=== PATIENT | female | born 1960 | race Caucasian/White ===

== ENCOUNTER 2017-02-27 23:10 | Emergency (ER) | payer BC, MEDICARE ==
[2017-02-27] MEDS ORDERED: PREDNISONE 20 MG TAB PO ONE (23:54)
--- NOTE | 2017-02-27 23:57 | Emergency Department Record ---
History of Present Illness - General Chief complaint: ENT Stated complaint: THROAT GLANDS SWELLING Time Seen by Provider: 02/27/17 23:54 Source: Patient Mode of Arrival: Ambulatory Limitations: No limitations - History of Present Illness Initial comments: 56 yo female presents to ED with a CC of soft-tissue swelling to the left side of the face that has slightly worsened tonight following dental manipulation earlier today for dental abscess. Patient reports that she was also switched from Zithromax to Clindamycin for her dental infection. Patient denies any tongue swelling or elevation, denies difficulty swallowing or breathing. MD complaint: Tooth pain, Other Onset/Timin -: Hour(s) Location: Other (submandibular region) Severity scale (1-10): 3 Quality: Aching Consistency: Constant Improves with: None Context- Dental: History of dental caries - Related Data Home Medications Medication Instructions Recorded Confirmed Last Taken Atenolol [Tenormin] 75 mg PO DAILY 04/20/14 08/19/16 08/18/14 Baclofen [Baclofen] 20 mg PO TID 04/20/14 08/19/16 08/17/14 Diazepam [Valium] 2.5 mg PO QHS 04/20/14 08/19/16 08/17/14 Levothyroxine Sodium [Levoxyl] 137 mcg PO DAILY 04/20/14 08/19/16 08/18/14 Losartan Potassium [Cozaar] 100 mg PO QHS 04/20/14 08/19/16 08/17/14 Valacyclovir HCl [Valtrex] 1,000 mg PO QHS 04/20/14 08/19/16 08/17/14 B Complex with Vitamin C [Super B 1 each PO DAILY 08/18/14 08/19/16 08/18/14 Complex with C] Calcium Citrate 500 mg PO QHS 08/18/14 08/19/16 08/17/14 Diazepam [Valium] 5 mg PO BID PRN 08/18/14 08/19/16 08/18/14 Folic Acid 1 mg PO DAILY 08/18/14 08/19/16 08/18/14 [place]-3 Fatty Acids/Fish Oil [Fish 1 each PO DAILY 08/18/14 08/19/16 08/18/14 Oil 1,000 mg Softgel] Albuterol Sulfate [Ventolin Hfa] 1 - 2 puff IH .EVERY 4-6 HOURS PRN 12/25/1512/25/15 Beclomethasone Dipropionate [Qvar] 2 puff IH DAILY 12/25/15 08/19/16 12/25/15 Duloxetine HCl [Cymbalta] 60 mg PO QHS 12/25/15 08/19/16 Unknown Estradiol [Estrace] 0.5 gm TOP WEEKLY 12/25/15 08/19/16 Unknown Gabapentin [Neurontin] 300 mg PO TID 12/25/15 08/19/16 Unknown Melatonin 5 mg PO QHS 12/25/15 08/19/16 Unknown Previous Rx's Medication Instructions Recorded Prednisone [Prednisone 20Mg] 20 mg PO BID #8 tab 02/27/17 Allergies Allergy/AdvReac Type Severity Reaction Status Date / Time pregabalin [From Lyrica] Allergy Severe ANAPHYLAXIS Verified 02/27/17 23:39 sulfamethoxazole Allergy Severe SWELLING Verified 02/27/17 23:39 [From Bactrim] OF THE FACE trimethoprim [From Bactrim] Allergy Severe SWELLING Verified 02/27/17 23:39 OF THE FACE adhesive Allergy Mild RASH Verified 02/27/17 23:39 nitrofurantoin AdvReac Intermediate VOMITING Verified 02/27/17 23:39 [From Macrobid] nitrofurantoin AdvReac Intermediate VOMITING Verified 02/27/17 23:39 macrocrystalline [From Macrobid] iv contrast dye Allergy Severe ANAPHYLAXIS Uncoded 10/31/16 14:49 Travel Screening - Travel/Exposure Within Last 30 Days Have you traveled within the last 30 days?: No - Travel Symptoms Symptom Screening: None Review of Systems Constitutional: Denies: Chills, Fever, Malaise, Night sweats Eyes: Denies: Eye discharge, Eye pain ENT: Reports: Dental pain. Denies: Congestion, Ear pain Respiratory: Denies: Cough, Dyspnea Cardiovascular: Denies: Chest pain, Dyspnea on exertion Endocrine: Denies: Fatigue, Heat or cold intolerance Gastrointestinal: Denies: Abdominal pain, Nausea, Vomiting Genitourinary: Denies: Dysuria, Frequency Musculoskeletal: Denies: Arthralgia, Back pain, Gout, Joint swelling Skin: Reports: Other (facial swelling). Denies: Bruising, Change in color, Change in hair/nails Neurological: Denies: Abnormal gait, Confusion, Headache, Seizure Psychiatric: Denies: Anxiety Hematological/Lymphatic: Denies: Anemia, Blood Clots Past Medical History - SOCIAL HISTORY Smoking Status: Light tobacco smoker (<10/day) - RESPIRATORY Hx Respiratory Disorders: Yes Hx Asthma: Yes Hx Pneumonia: Yes - CARDIOVASCULAR Hx Cardio Disorders: Yes Hx Hypertension: Yes - NEURO Hx Neuro Disorders: Yes Hx Neuropathy: Yes (all over) Hx Seizures: Yes (1999) - GI Hx GI Disorders: No Comment:: gluten intollerant - Hx Genitourinary Disorders: Yes Hx Renal Disease: Yes Hx UTI: Yes - ENDOCRINE Hx Endocrine Disorders: Yes Hx Thyroid Disease: Yes (low) Comment:: Adrenal tumor-pheochromocytoma - MUSCULOSKELETAL Hx Musculoskeletal Disorders: Yes Hx Arthritis: Yes (right knee pain) Comment:: congenital myopathy - PSYCH Hx Psych Problems: No - HEMATOLOGY/ONCOLOGY Hx Hematology/Oncology Disorders: Yes Hx Cancer: Yes (Leukemia) 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 negative: Conjunctival injection, Periorbital swelling, Periorbital tenderness, Scleral icterus - ENT ENT exam: Mucous membranes moist, Normal orophraynx Ear exam: negative: Auricular hematoma, Auricular trauma Nasal Exam: negative: Active bleeding, Discharge, Dried blood, Foreign body Mouth exam: Tongue normal, Other (On examination, there is no evidence for ludwigs angina, tongue elevation, or submandibular abscess/lesion present. Patient has very mild edema extending from the left lower mandible into the submandibular region on examination.). negative: Drooling, Laceration, Muffled voice, Tongue elevation Teeth exam: Dental caries Throat exam: negative: Tonsillar erythema, Tonsillomegaly, Tonsillar exudate, R peritonsillar mass, L peritonsillar mass - Neck Neck exam: Full ROM. negative: Lymphadenopathy, Meningismus, Tenderness - Respiratory Respiratory exam: Normal lung sounds bilaterally. negative: Rales, Respiratory distress, Rhonchi, Stridor - Cardiovascular Cardiovascular Exam: Regular rate, Normal rhythm, Normal heart sounds - GI/Abdominal GI/Abdominal exam: Soft. negative: Rebound, Rigid, Tenderness - Rectal Rectal exam: Deferred - exam: Deferred - Extremities Extremities exam: Normal inspection. negative: Calf tenderness, Pedal edema, Tenderness - Back Back exam: Denies: CVA tenderness (R), CVA tenderness (L) - Neurological Neurological exam: Alert, Normal gait, Oriented X3 - Psychiatric Psychiatric exam: Normal affect, Normal mood - Skin Skin exam: Normal color. negative: Abrasion Type of lesion: negative: abrasion Course Vital Signs 02/27/17 23:36 Temperature 98.1 F Pulse Rate [ 75 Pulse Ox Probe] Respiratory 18 Rate Blood Pressure 137/72 [Right Arm] - Reevaluation(s) Reevaluation #1: 02/28/17 00:02 Patient is well appearing on examination without evidence for jono's angina present. There is no tongue elevation on examination, no evidence for submandibular abscess on examination. Patient was just switched to Clindamycin today as well. Will treat with Prednisone 20 mg BID for her facial swelling/ inflammation, patient was instructed to return to ED for any worsening of her symptoms, any tongue elevation, difficultly swallowing, or "hardness" to the submandibula region. Patient appears stable for discharge at this time. Disposition Disposition: Discharge Clinical Impression: Dental abscess Disposition: Home, Self-Care Condition: (2) Stable Instructions: Dental Abscess (ED) Additional Instructions: Return to ED if your facial swelling worsens or if you have any concerns. Prednisone 20 mg twice daily as directed. Follow-up with your dentist Thursday for further evaluation. Prescriptions: Prednisone [Prednisone 20Mg] 20 mg PO BID #8 tab Forms: Patient Portal Access Time of Disposition: 23:57
== END 2017-02-28 00:13 | disposition home or self-care (01) ==
LOC: ER 23:10
DX: K04.7 Periapical abscess without sinus (principal)
CPT/HCPCS: 99282; J7512

== ENCOUNTER 2017-03-01 17:44 | Emergency (ER) | payer BC, MEDICARE ==
[2017-03-01] MEDS ORDERED: 0.9 % SODIUM CHLORIDE 1000ML 1,000 ML IV SCH (18:15)
--- NOTE | 2017-03-01 18:18 | Emergency Department Record ---
History of Present Illness - General Chief complaint: Dental Stated complaint: DENTAL PROBLEM Time Seen by Provider: 03/01/17 18:11 Source: Patient Mode of Arrival: Ambulatory Limitations: No limitations - History of Present Illness Initial comments: 56 yo female presents to ED with a CC of increased submandibular swelling resulting from a dental infection. Patient reports that she is being treated by Dr. Carrera (sp?) last week x 4 draining an infected tooth to the left lower mandible. Patient was switched to Clindamycin Thursday by her dentist, seen Thursday night and started on prednisone for her swelling symptoms. Patient reports that her symptoms improved Thursday, but are worsening today. Patient denies any tongue swelling/elevation, throat swelling, or difficulty in breathing symptoms. Patient fevers, chills, or pain with extraocular movement. MD complaint: Tooth pain Onset/Timin -: Week(s) Location: Tooth # 1 - dental abscess per patient Severity: Moderate Consistency: Constant Improves with: None Worsens with: None Context- Dental: History of dental caries - Related Data Home Medications Medication Instructions Recorded Confirmed Last Taken Atenolol [Tenormin] 75 mg PO DAILY 04/20/14 03/01/17 03/01/17 Baclofen [Baclofen] 20 mg PO TID 04/20/14 03/01/17 03/01/17 Diazepam [Valium] 2.5 mg PO QHS 04/20/14 03/01/17 02/28/17 Levothyroxine Sodium [Levoxyl] 137 mcg PO DAILY 04/20/14 03/01/17 03/01/17 Losartan Potassium [Cozaar] 100 mg PO QHS 04/20/14 03/01/17 02/28/17 Valacyclovir HCl [Valtrex] 1,000 mg PO QHS 04/20/14 03/01/17 02/28/17 B Complex with Vitamin C [Super B 1 each PO DAILY 08/18/14 03/01/17 03/01/17 Complex with C] Calcium Citrate 500 mg PO QHS 08/18/14 03/01/17 02/28/17 Diazepam [Valium] 5 mg PO BID PRN 08/18/14 03/01/17 03/01/17 Folic Acid 1 mg PO DAILY 08/18/14 03/01/17 03/01/17 [place]-3 Fatty Acids/Fish Oil [Fish 1 each PO DAILY 08/18/14 03/01/17 03/01/17 Oil 1,000 mg Softgel] Albuterol Sulfate [Ventolin Hfa] 1 - 2 puff IH .EVERY 4-6 HOURS PRN 12/25/1508/0903/01/17 Beclomethasone Dipropionate [Qvar] 2 puff IH DAILY 12/25/15 03/01/17 03/01/17 Duloxetine HCl [Cymbalta] 60 mg PO QHS 12/25/15 03/01/17 02/28/17 Estradiol [Estrace] 0.5 gm TOP WEEKLY 12/25/15 03/01/17 03/01/17 Gabapentin [Neurontin] 300 mg PO TID 12/25/15 03/01/17 03/01/17 Melatonin 5 mg PO QHS 12/25/15 03/01/17 02/28/17 Ciprofloxacin HCl [Cipro] 500 mg PO Q12HR 02/28/17 03/01/17 03/01/17 Clindamycin HCl [Cleocin HCl] 300 mg PO BID 02/28/17 03/01/17 03/01/17 Hydrocodone/Acetaminophen [Vicodin 1 tab PO Q8H PRN 02/28/17 03/01/17 03/01/17 5mg/300mg] Previous Rx's Medication Instructions Recorded Prednisone [Prednisone 20Mg] 20 mg PO BID #8 tab 02/27/17 Allergies Allergy/AdvReac Type Severity Reaction Status Date / Time pregabalin [From Lyrica] Allergy Severe ANAPHYLAXIS Verified 02/27/17 23:39 sulfamethoxazole Allergy Severe SWELLING Verified 02/27/17 23:39 [From Bactrim] OF THE FACE trimethoprim [From Bactrim] Allergy Severe SWELLING Verified 02/27/17 23:39 OF THE FACE adhesive Allergy Mild RASH Verified 02/27/17 23:39 nitrofurantoin AdvReac Intermediate VOMITING Verified 02/27/17 23:39 [From Macrobid] nitrofurantoin AdvReac Intermediate VOMITING Verified 02/27/17 23:39 macrocrystalline [From Macrobid] iv contrast dye Allergy Severe ANAPHYLAXIS Uncoded 10/31/16 14:49 Travel Screening - Travel/Exposure Within Last 30 Days Have you traveled within the last 30 days?: No - Travel/Exposure Within Last Year Have you traveled outside the [place] in the last year?: No - Additonal Travel Details Have you been exposed to anyone with a communicable illness?: No - Travel Symptoms Symptom Screening: None Review of Systems Constitutional: Denies: Chills, Fever, Malaise, Night sweats Eyes: Denies: Eye discharge, Eye pain ENT: Reports: Dental pain, Other (left sided facial swelling). Denies: Congestion, Ear pain Respiratory: Denies: Cough, Dyspnea Cardiovascular: Denies: Chest pain, Dyspnea on exertion Endocrine: Denies: Fatigue, Heat or cold intolerance Gastrointestinal: Denies: Abdominal pain, Nausea, Vomiting Genitourinary: Denies: Incontinence, Retention Musculoskeletal: Denies: Arthralgia, Back pain, Gout, Joint swelling Skin: Denies: Bruising, Change in color Neurological: Denies: Abnormal gait, Confusion, Headache, Seizure Psychiatric: Denies: Anxiety Hematological/Lymphatic: Denies: Anemia, Blood Clots Past Medical History - SOCIAL HISTORY Smoking Status: Light tobacco smoker (<10/day) Alcohol Use: None Drug Use: None - RESPIRATORY Hx Respiratory Disorders: Yes Hx Asthma: Yes Hx Pneumonia: Yes - CARDIOVASCULAR Hx Cardio Disorders: Yes Hx Hypertension: Yes - NEURO Hx Neuro Disorders: Yes Hx Neuropathy: Yes (all over) Hx Seizures: Yes (1999) - GI Hx GI Disorders: No Comment:: gluten intollerant - Hx Genitourinary Disorders: Yes Hx Renal Disease: Yes Hx UTI: Yes - ENDOCRINE Hx Endocrine Disorders: Yes Hx Thyroid Disease: Yes (low) Comment:: Adrenal tumor-pheochromocytoma - MUSCULOSKELETAL Hx Musculoskeletal Disorders: Yes Hx Arthritis: Yes (right knee pain) Comment:: congenital myopathy - PSYCH Hx Psych Problems: No - HEMATOLOGY/ONCOLOGY Hx Hematology/Oncology Disorders: Yes Hx Cancer: Yes (Leukemia) 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 Overall very little chagne from 48 hours prior.). negative: Abrasion, Contusion, Paige's sign, General tenderness, Hematoma, Laceration - Eye Eye exam: Periorbital swelling. negative: Conjunctival injection, Periorbital tenderness, Scleral icterus - ENT Ear exam: negative: Auricular hematoma, Auricular trauma Nasal Exam: negative: Active bleeding, Discharge, Dried blood, Foreign body, Sinus tenderness Mouth exam: negative: Drooling, Laceration, Tongue elevation Teeth exam: Dental caries Throat exam: negative: Tonsillar erythema, Tonsillomegaly, Tonsillar exudate, R peritonsillar mass, L peritonsillar mass - Neck Neck exam: Normal inspection. negative: Meningismus, Tenderness - Respiratory Respiratory exam: Normal lung sounds bilaterally. negative: Respiratory distress, Rhonchi, Stridor, Wheezes - Cardiovascular Cardiovascular Exam: Regular rate, Normal rhythm, Normal heart sounds - GI/Abdominal GI/Abdominal exam: Soft. negative: Pulsatile mass, Rebound, Rigid, Tenderness - Rectal Rectal exam: Deferred - exam: Deferred - Extremities Extremities exam: Normal inspection. negative: Calf tenderness, Pedal edema, Tenderness - Back Back exam: Denies: CVA tenderness (R), CVA tenderness (L) - Neurological Neurological exam: Alert, Normal gait, Oriented X3 - Psychiatric Psychiatric exam: Normal affect, Normal mood - Skin Skin exam: Normal color. negative: Abrasion Type of lesion: negative: abrasion Course Vital Signs 03/01/17 18:03 Temperature 97.3 F L Pulse Rate 89 Respiratory 14 Rate Blood Pressure 167/94 Pulse Ox 97 - Reevaluation(s) Reevaluation #1: 03/01/17 18:19 Overall very little change from 48 hours prior. Will image the area to exclude submandibular process and reassess. Patient reports that she will be able to follow-up with her dentist tomorrow as well if her imaging does not demonstrate an acute submandibular process. Reevaluation #2: 03/01/17 19:35 Soft tissue neck w/o contrast: No abscess or sub-mandibular process identified, ? small lucency at dental root left lower mandible relating to possible apical abscess, nothing else acute. Reevaluation #3: 03/01/17 19:50 Labs reviewed, WBC 15.3 (on prednisone), Hgb 11.1, glucose 184. Labs are otherwise grossly unremarkable for an acute process. Patient updated on all results, and appears stable for discharge at this time with instructions to follow-up with her dentist tomorrow for further evaluation. Medical Decision Making - Lab Data Result diagrams: 03/01/17 19:25 03/01/17 19:25 Disposition Disposition: Discharge Clinical Impression: Dental abscess Disposition: Home, Self-Care Condition: (2) Stable Instructions: Dental Abscess (ED) Additional Instructions: Return to ED if your symptoms worsen or if you have any concerns. Continue Clindamycin as directed. Call your dentist for follow-up tomorrow morning. Forms: Patient Portal Access Time of Disposition: 19:52
[2017-03-01 19:29] LABS: HEMATOCRIT 33.4 % (35.0-47.0); HEMOGLOBIN 11.1 gm/dl (11.6-16.0); MEAN CORPUSCULAR HEMOGLOBIN 34.9 pg (27-33); MEAN CORPUSCULAR HGB CONC 33.2 g/dl (32-36); MEAN PLATELET VOLUME 8.7 fl (7.4-10.4); PLATELET COUNT 397 K/uL (130-400); RED BLOOD COUNT 3.18 M/uL (3.80-5.40); RED CELL DISTRIBUTION WIDTH 14.2 % (11.5-14.5); WHITE BLOOD COUNT W/O DIFF 15.3 K/uL (4.2-12.2)
[2017-03-01 19:40] LABS: ALB/GLOB RATIO 1.5 (1.1-1.8); ALKALINE PHOSPHATASE 107 U/L (38-126); ALT/SGPT 58 U/L (9-52); ANION GAP 10.6 (7-16); AST/SGOT 48 U/L (14-36); BILIRUBIN,TOTAL 0.23 mg/dL (0.2-1.3); BLOOD UREA NITROGEN 18 mg/dL (7-17); CARBON DIOXIDE 25.4 mmol/L (22-30); CREATININE 0.7 mg/dL (0.52-1.04); EST GLOMERULAR FILTRATION RATE > 60 ml/min; GLUCOSE,RANDOM 184 mg/dL (70-110); TOTAL PROTEIN 6.7 gm/dL (6.3-8.2)
== END 2017-03-01 20:10 | disposition home or self-care (01) ==
LOC: ER 17:44
DX: K04.7 Periapical abscess without sinus (principal)
CPT/HCPCS: 70490; 80053; 85027; 99283; 99284; J7030

== ENCOUNTER 2017-06-15 23:31 | Emergency (ER) | payer BC, MEDICARE ==
[2017-06-16] MEDS ORDERED: ONDANSETRON HCL IV 4 MG/2 ML VIAL IVP ONE ×2 (00:17→02:16)
[2017-06-16] MEDS ORDERED: KETOROLAC 30 MG/ML VIAL IVP ONE (00:17)
--- NOTE | 2017-06-16 00:23 | Emergency Department Record ---
History of Present Illness - General Chief Complaint: Back Pain/Injury Stated Complaint: BACK PAIN Time Seen by Provider: 06/16/17 00:17 Source: Patient Mode of Arrival: Wheelchair Limitations: No limitations - History of Present Illness Initial Comments: 57 yo female presents to ED with a CC of bilateral flank pain symptoms and body aches. Patient reports UTI symptoms for the past 1 week, however reports that her symptoms worsened tonight. Patient denies history of kidney stones. Patient reports taking 1 dose of Cipro this afternoon. Patient reports nausea symptoms without abdominal pain. MD Complaint: Back pain Onset/Timin -: Hour(s) Similar Symptoms Previously: Yes Radiation: None Severity: Mild Severity scale (1-10): 8 Quality: Aching Consistency: Constant Improves With: None Worsens With: Movement, Walking Associated Symptoms: Nausea/vomiting Treatments Prior to Arrival: Prescription analgesics - Related Data Home Medications Medication Instructions Recorded Confirmed Last Taken Baclofen [Baclofen] 20 mg PO TID 04/20/14 06/16/17 03/01/17 Diazepam [Valium] 2.5 mg PO QHS 04/20/14 06/16/17 02/28/17 Levothyroxine Sodium [Levoxyl] 137 mcg PO DAILY 04/20/14 06/16/17 03/01/17 Losartan Potassium [Cozaar] 100 mg PO QAM 04/20/14 06/16/17 02/28/17 Valacyclovir HCl [Valtrex] 500 mg PO QHS 04/20/14 06/16/17 02/28/17 B Complex with Vitamin C [Super B 1 each PO DAILY 08/18/14 06/16/17 03/01/17 Complex with C] Calcium Citrate 500 mg PO QHS 08/18/14 06/16/17 02/28/17 Diazepam [Valium] 5 mg PO BID PRN 08/18/14 06/16/17 03/01/17 Folic Acid 1 mg PO DAILY 08/18/14 06/16/17 03/01/17 [place]-3 Fatty Acids/Fish Oil [Fish 1 each PO DAILY 08/18/14 06/16/17 03/01/17 Oil 1,000 mg Softgel] Albuterol Sulfate [Ventolin Hfa] 1 - 2 puff IH .EVERY 4-6 HOURS PRN 12/25/1503/01/17 Duloxetine HCl [Cymbalta] 60 mg PO QHS 12/25/15 06/16/17 02/28/17 Estradiol [Estrace] 0.5 gm TOP WEEKLY 12/25/15 06/16/17 03/01/17 Gabapentin [Neurontin] 300 mg PO TID 12/25/15 06/16/17 03/01/17 Melatonin 5 mg PO QHS 12/25/15 06/16/17 02/28/17 Ciprofloxacin HCl [Cipro] 500 mg PO Q12HR 02/28/17 06/16/17 03/01/17 Carvedilol [Carvedilol] 25 mg PO QHS 06/16/17 06/16/17 Unknown Allergies Allergy/AdvReac Type Severity Reaction Status Date / Time pregabalin [From Lyrica] Allergy Severe ANAPHYLAXIS Verified 02/27/17 23:39 sulfamethoxazole Allergy Severe SWELLING Verified 02/27/17 23:39 [From Bactrim] OF THE FACE trimethoprim [From Bactrim] Allergy Severe SWELLING Verified 02/27/17 23:39 OF THE FACE adhesive Allergy Mild RASH Verified 02/27/17 23:39 nitrofurantoin AdvReac Intermediate VOMITING Verified 02/27/17 23:39 [From Macrobid] nitrofurantoin AdvReac Intermediate VOMITING Verified 02/27/17 23:39 macrocrystalline [From Macrobid] iv contrast dye Allergy Severe ANAPHYLAXIS Uncoded 10/31/16 14:49 Travel Screening - Travel/Exposure Within Last 30 Days Have you traveled within the last 30 days?: No - Travel/Exposure Within Last Year Have you traveled outside the [place] in the last year?: No - Additonal Travel Details Have you been exposed to anyone with a communicable illness?: No - Travel Symptoms Symptom Screening: None Review of Systems Constitutional: Reports: Malaise. Denies: Chills, Fever, Night sweats Eyes: Denies: Eye discharge, Eye pain ENT: Denies: Congestion, Ear pain, Epistaxis Respiratory: Denies: Cough, Dyspnea Cardiovascular: Denies: Chest pain, Dyspnea on exertion Endocrine: Denies: Fatigue, Heat or cold intolerance Gastrointestinal: Reports: Nausea. Denies: Abdominal pain Genitourinary: Reports: Dysuria, Frequency. Denies: Hematuria, Retention Musculoskeletal: Reports: Back pain (flank pain). Denies: Arthralgia, Gout, Joint swelling Skin: Denies: Bruising, Change in color Neurological: Denies: Abnormal gait, Confusion, Headache, Seizure Psychiatric: Denies: Anxiety Hematological/Lymphatic: Denies: Anemia, Blood Clots Past Medical History - SOCIAL HISTORY Smoking Status: Light tobacco smoker (<10/day) Alcohol Use: None Drug Use: None - RESPIRATORY Hx Respiratory Disorders: Yes Hx Asthma: Yes Hx Pneumonia: Yes - CARDIOVASCULAR Hx Cardio Disorders: Yes Hx Hypertension: Yes - NEURO Hx Neuro Disorders: Yes Hx Neuropathy: Yes (all over) Hx Seizures: Yes (1999) - GI Hx GI Disorders: No Comment:: gluten intollerant - Hx Genitourinary Disorders: Yes Hx Renal Disease: Yes Hx UTI: Yes - ENDOCRINE Hx Endocrine Disorders: Yes Hx Thyroid Disease: Yes (low) Comment:: Adrenal tumor-pheochromocytoma - MUSCULOSKELETAL Hx Musculoskeletal Disorders: Yes Hx Arthritis: Yes (right knee pain) Comment:: congenital myopathy - PSYCH Hx Psych Problems: No - HEMATOLOGY/ONCOLOGY Hx Hematology/Oncology Disorders: Yes Hx Cancer: Yes (Leukemia) 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 negative: Conjunctival injection, Periorbital swelling, Periorbital tenderness, Scleral icterus - ENT Ear exam: negative: Auricular hematoma, Auricular trauma Nasal Exam: negative: Active bleeding, Discharge, Dried blood, Foreign body Mouth exam: negative: Drooling, Laceration, Muffled voice, Tongue elevation - Neck Neck exam: Normal inspection. negative: Meningismus, Tenderness - Respiratory Respiratory exam: Normal lung sounds bilaterally. negative: Rales, Respiratory distress, Rhonchi, Stridor - Cardiovascular Cardiovascular Exam: Normal rhythm, Normal heart sounds, Tachycardia - GI/Abdominal GI/Abdominal exam: Soft, Tenderness (Mild diffuse TTP on examination, no rebound or guarding is present on exam). negative: Rebound, Rigid - Rectal Rectal exam: Deferred - exam: Deferred - Extremities Extremities exam: Normal inspection. negative: Calf tenderness, Pedal edema, Tenderness - Back Back exam: Reports: CVA tenderness (R), CVA tenderness (L) - Neurological Neurological exam: Alert, Normal gait, Oriented X3 - Psychiatric Psychiatric exam: Normal affect, Normal mood - Skin Skin exam: Normal color. negative: Abrasion Type of lesion: negative: abrasion Course Vital Signs 06/16/17 06/16/17 00:00 00:06 Temperature 99.2 F 99.2 F Pulse Rate 116 H Pulse Rate [ 121 H Pulse Ox Probe] Respiratory 26 H 26 H Rate Blood Pressure 139/84 Blood Pressure 139/84 [Right Arm] Pulse Ox 100 100 - Reevaluation(s) Reevaluation #1: 06/16/17 01:32 Labs reviewed, WBC 12, AST 103, ALT 90, Alk phos 138. UA reviewed: 7-10 RBCs 21-[address] imaging is pending at this time, Rocephin ordered to infuse. Reevaluation #2: 06/16/17 02:26 CT Abdomen and Pelvis: Stranding around the kidneys bilaterally, no hydronephrosis or calculi are seen on examination. Rocephin ordered for treatment of pyelonephritis, Morphine and Zofran ordered for continued flank pain symptoms. Repeat pulse is improved to 104 from 120 previously. Reevaluation #3: 06/16/17 03:14 Patient reassessed and reports that she is feeling much better. Patient appears stable for discharge at this time. Medical Decision Making - Lab Data Result diagrams: 06/16/17 00:30 06/16/17 00:30 Disposition Disposition: Discharge Clinical Impression: Pyelonephritis Disposition: Home, Self-Care Condition: (2) Stable Instructions: Kidney Infection (ED) Additional Instructions: Return to ED if your symptoms worsen or if you have any concerns. Continue Cipro as previously prescribed. Follow-up with you family doctor in 1-3 days as directed. Forms: Patient Portal Access Time of Disposition: 02:30 Quality - Quality Measures Quality Measures: N/A - Blood Pressure Screening Blood Pressure Classification: Pre-Hypertensive BP Reading Systolic Measurement: 139 Diastolic Measurement: 84 Screening for High Blood Pressure: < Pre-Hypertensive BP, F/U Documented > [ G8950] Pre-Hypertensive Follow-up Interventions: Referral to alternative/primary care provider.
[2017-06-16] MEDS ORDERED: 0.9 % SODIUM CHLORIDE 1000ML 1,000 ML IV SCH (00:30)
[2017-06-16 01:02] LABS: HEMOGLOBIN 14.2 gm/dl (11.6-16.0); MEAN CELL VOLUME 96.6 fl (81-97); MEAN CORPUSCULAR HEMOGLOBIN 34.3 pg (27-33); MEAN CORPUSCULAR HGB CONC 35.5 g/dl (32-36); MEAN PLATELET VOLUME 8.9 fl (7.4-10.4); PLATELET COUNT 283 K/uL (130-400); RED BLOOD COUNT 4.14 M/uL (3.80-5.40); RED CELL DISTRIBUTION WIDTH 13.7 % (11.5-14.5)
[2017-06-16 01:05] LABS: URINE APPEARANCE CLEAR; URINE BILIRUBIN NEGATIVE (NEGATIVE); URINE BLOOD SMALL (NEGATIVE); URINE COLOR YELLOW; URINE GLUCOSE (UA) NEGATIVE (NEGATIVE); URINE KETONE NEGATIVE (NEGATIVE); URINE LEUKOCYTE ESTERASE LARGE (NEGATIVE); URINE NITRITE NEGATIVE (NEGATIVE); URINE PROTEIN TRACE (NEGATIVE); URINE UROBILINOGEN 0.2 E.U./dL (0.20 - 1.00)
[2017-06-16 01:12] LABS: LACTIC ACID 2.1 mmol/L (0.7-2.1)
[2017-06-16 01:13] LABS: CREATININE 1.1 mg/dL (0.52-1.04)
[2017-06-16 01:14] LABS: ALB/GLOB RATIO 1.3 (1.1-1.8); ALBUMIN 4.3 gm/dL (3.5-5.0); BILIRUBIN,TOTAL 0.9 mg/dL (0.2-1.3); TOTAL PROTEIN 7.5 gm/dL (6.3-8.2)
[2017-06-16 01:16] LABS: URINE BACTERIA FEW; URINE EPITHELIAL CELLS 0 - 2 (FEW); URINE WBC 21 - 35 (0-2/hpf)
[2017-06-16] MEDS ORDERED: CEFTRIAXONE SODIUM 1 GM in 0.9 % SODIUM CHLORIDE 100ML 100 ML IVPB ONE (01:33)
[2017-06-16] MEDS ORDERED: MORPHINE SULFATE 5 MG/ML PFS IVP ONE (02:16)
--- NOTE | 2017-06-17 08:05 | CT SCAN REPORT ---
EXAM: CT OF THE ABDOMEN AND PELVIS WITHOUT CONTRAST HISTORY: ABDOMINAL PAIN. TECHNIQUE: Sequential axial images were obtained from the diaphragms through the ischiorectal fossa without intravenous or oral contrast administration. FINDINGS: The visualized lung bases appear normal. There is fatty infiltration of the liver. The gallbladder, pancreas, and spleen appear normal. The adrenal glands appear normal. There is bilateral perinephric fat stranding. There is duplication of the left renal collecting system. No evidence of obstructive uropathy. The small and large bowel appears normal. The appendix is visualized and appears normal. The urinary bladder appears normal. The uterus and adnexal structures are normal. The osseous structures are normal. IMPRESSION: 1. FATTY INFILTRATION OF THE LIVER. 2. BILATERAL PERINEPHRIC FAT STRANDING. NO DEFINITIVE OBSTRUCTION OR OBSTRUCTIVE UROPATHY IS APPRECIATED. CORRELATION WITH POSSIBLE PYELONEPHRITIS IS RECOMMENDED. 3. COLONIC DIVERTICULOSIS WITHOUT EVIDENCE OF DIVERTICULITIS. JOB NUMBER: [id number] MTDD
== END 2017-06-16 04:05 | disposition home or self-care (01) ==
LOC: ER 23:31
DX: N10 Acute pyelonephritis (principal); R11.2 Nausea with vomiting, unspecified
CPT/HCPCS: 99284 ×2; 96376; 96374; 96375; 83605; 80053; 81001; 85027; 74176; J1885; J2405; J2270; J7030

== ENCOUNTER 2017-10-23 20:52 | Emergency (ER) | payer BC, MEDICARE ==
[2017-10-23] MEDS ORDERED: HYDROCODONE/APAP 7.5/325MG TABLET PO ONE (21:31)
[2017-10-23] MEDS ORDERED: KETOROLAC 30 MG/ML VIAL IM ONE (21:31)
--- NOTE | 2017-10-23 21:32 | Emergency Department Record ---
History of Present Illness - General Chief complaint: Pain Stated complaint: RT KNEE PAIN Time Seen by Provider: 10/23/17 21:19 Source: Patient Mode of Arrival: Ambulatory Limitations: No limitations - History of Present Illness Initial comments: 57 yo female presents with ongoing right knee pain for several months. She has had prior surgery. The knee causes fairly constant pain and gives out at times. No redness or warmth. She initially saw Dr Kathleen and had surgery. She left his practice and followed with Dr Draper. She has been told she is not at a point for a replacement. No fevers or chills. No calf swelling. MD Complaint: Joint pain Onset/Timin -: Week(s) Location: Right History of Same: Yes Quality: Aching Consistency: Constant Improves with: Medication Worsens with: Exertion, Walking, Weight bearing Associated Symptoms: Denies other symptoms - Related Data Previous Rx's Medication Instructions Recorded Hydrocodone/Acetaminophen [[place] 1 each PO Q8H #12 tablet 10/23/17 7.5-325 Tablet] Allergies Allergy/AdvReac Type Severity Reaction Status Date / Time pregabalin [From Lyrica] Allergy Severe ANAPHYLAXIS Verified 02/27/17 23:39 sulfamethoxazole Allergy Severe SWELLING Verified 02/27/17 23:39 [From Bactrim] OF THE FACE trimethoprim [From Bactrim] Allergy Severe SWELLING Verified 02/27/17 23:39 OF THE FACE adhesive Allergy Mild RASH Verified 02/27/17 23:39 nitrofurantoin AdvReac Intermediate VOMITING Verified 02/27/17 23:39 [From Macrobid] nitrofurantoin AdvReac Intermediate VOMITING Verified 02/27/17 23:39 macrocrystalline [From Macrobid] iv contrast dye Allergy Severe ANAPHYLAXIS Uncoded 10/31/16 14:49 Travel Screening - Travel/Exposure Within Last 30 Days Have you traveled within the last 30 days?: No Review of Systems Constitutional: Denies: Chills, Fever, Malaise, Weakness Eyes: Denies: Eye discharge, Eye pain, Photophobia, Vision change ENT: Denies: Congestion, Throat pain Respiratory: Denies: Cough, Dyspnea, Hemoptysis Cardiovascular: Denies: Chest pain, Syncope Endocrine: Denies: Fatigue Gastrointestinal: Denies: Abdominal pain, Diarrhea, Nausea, Vomiting Genitourinary: Denies: Dysuria, Urgency Musculoskeletal: Reports: Arthralgia. Denies: Joint swelling, Myalgia Skin: Denies: Bruising, Change in color, Rash Neurological: Denies: Confusion, Headache, Numbness, Weakness Psychiatric: Denies: Anxiety Hematological/Lymphatic: Denies: Blood Clots, Easy bleeding, Easy bruising, Swollen glands Past Medical History - SOCIAL HISTORY Smoking Status: Light tobacco smoker (<10/day) Alcohol Use: None Drug Use: None - RESPIRATORY Hx Respiratory Disorders: Yes Hx Asthma: Yes Hx Pneumonia: Yes - CARDIOVASCULAR Hx Cardio Disorders: Yes Hx Hypertension: Yes - NEURO Hx Neuro Disorders: Yes Hx Neuropathy: Yes (all over) Hx Seizures: Yes (1999) - GI Hx GI Disorders: No Comment:: gluten intollerant - Hx Genitourinary Disorders: Yes Hx Renal Disease: Yes Hx UTI: Yes - ENDOCRINE Hx Endocrine Disorders: Yes Hx Thyroid Disease: Yes (low) Comment:: Adrenal tumor-pheochromocytoma - MUSCULOSKELETAL Hx Musculoskeletal Disorders: Yes Hx Arthritis: Yes (right knee pain) Comment:: congenital myopathy - PSYCH Hx Psych Problems: No - HEMATOLOGY/ONCOLOGY Hx Hematology/Oncology Disorders: Yes Hx Cancer: Yes (Leukemia) 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 negative: Conjunctival injection, Scleral icterus - ENT ENT exam: Normal exam, Mucous membranes moist Ear exam: Normal external inspection Nasal Exam: Normal inspection Mouth exam: Normal external inspection - Neck Neck exam: Normal inspection, Full ROM. negative: Tenderness - Cardiovascular Peripheral Pulses: 2+: Dorsalis Pedis (R) - GI/Abdominal GI/Abdominal exam: Soft. negative: Tenderness - Rectal Rectal exam: Deferred - exam: Deferred - Extremities Extremities exam: Normal inspection, Full ROM, Normal capillary refill, Tenderness. negative: Joint swelling, Pedal edema Image of Full Body: 1 - mild medial and lateral tenderness, no warmth or erythema, no definite effusion - Back Back exam: Denies: CVA tenderness (R), CVA tenderness (L), Full ROM - Neurological Neurological exam: Alert, Oriented X3 - Psychiatric Psychiatric exam: Normal affect, Normal mood - Skin Skin exam: Dry, Intact, Normal color, Warm Course Vital Signs 10/23/17 21:21 Temperature 98.7 F Pulse Rate [ 93 H Pulse Ox Probe] Respiratory 18 Rate Blood Pressure 123/84 [Left Arm] Pulse Ox 95 - Reevaluation(s) Reevaluation #1: 10/23/17 21:30 Prior knee XR was 07/2016 The patient has braces but she does not wear them 10/23/17 21:46 The XR was read as no acute changes from prior with degenerative changes The patient is to call her PCP for assisted pain management for her chronic knee pain Disposition Disposition: Discharge Clinical Impression: Chronic knee pain Qualifiers: Laterality: right Qualified Code(s): M25.561 - Pain in right knee Disposition: Home, Self-Care Condition: (1) Good Instructions: Knee Pain (ED), Knee Immobilizer (ED) Additional Instructions: Ice and elevate the knee to prevent swelling Use your brace for support and comfort 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
--- NOTE | 2017-10-24 11:44 | RADIOLOGY REPORT ---
EXAM: KNEE, RIGHT 3 VIEWS HISTORY: KNEE PAIN. TECHNIQUE: Three views of the right knee. COMPARISON: Prior right knee from 08/19/16. ENCOUNTER: Initial. FINDINGS: Medial and patellofemoral compartment degenerative change. Negative for fracture or dislocation. Soft tissues are unremarkable. IMPRESSION: DEGENERATIVE CHANGE. NO ACUTE OSSEOUS ABNORMALITY. JOB NUMBER: [id number] MTDD
== END 2017-10-23 22:17 | disposition home or self-care (01) ==
LOC: ER 20:52
DX: G89.29 Other chronic pain (principal); M25.561 Pain in right knee; I10 Essential (primary) hypertension; F17.210 Nicotine dependence, cigarettes, uncomplicated
CPT/HCPCS: 29505; 99283; 96372; 99284; 73562; J1885

== ENCOUNTER 2018-01-16 21:01 | Emergency (ER) | payer OTHER, MEDICARE ==
[2018-01-16] MEDS ORDERED: KETOROLAC 30 MG/ML VIAL IM ONE (21:35)
--- NOTE | 2018-01-16 21:39 | Emergency Department Record ---
History of Present Illness - General Chief complaint: Lower Extremity Pain Stated complaint: INJURY TO LEFT KNEE Time Seen by Provider: 01/16/18 21:24 Source: Patient Mode of Arrival: Wheelchair Limitations: No limitations - History of Present Illness Initial comments: pts knee gave out on her last night when she was going up stairs. she has not been able to bear weight. Complaint: Extremity pain, Joint pain Onset/Timin -: Days(s) Location: Left, Knee History of Same: Yes Radiation: None Severity scale (1-10): 7 Quality: Aching Consistency: Constant Improves with: Rest Worsens with: Exertion, Weight bearing Associated Symptoms: Denies other symptoms - Related Data Home Medications Medication Instructions Recorded Confirmed Last Taken Amoxicillin 500Mg Capsule [Amoxil] 500 mg PO TID 01/16/18 01/16/18 01/16/18 Beclomethasone Dipropionate [Qvar 2 puff IH BID 01/16/18 01/16/18 01/16/18 40Mcg/100 Actuat Inhaler] Chlorthalidone 25 mg PO DAILY 01/16/18 01/16/18 01/16/18 Eszopiclone [Lunesta] 2 mg PO QHS PRN 01/16/18 01/16/18 Unknown Folic Acid 1 mg PO DAILY 01/16/18 01/16/18 Unknown Hydrocodone/Acetaminophen [[place] 1 each PO Q6H 01/16/18 01/16/18 Unknown 7.5-325 Tablet] Loratadine [Claritin] 10 mg PO DAILY PRN 01/16/18 01/16/18 Unknown Magnesium 200 mg PO QHS 01/16/18 01/16/18 Unknown Naproxen 500 mg PO BID 01/16/18 01/16/18 Unknown Ondansetron [Zofran Odt] 4 mg PO Q8H 01/16/18 01/16/18 Unknown Polyethylene Glycol 3350 17 gm PO DAILY 01/16/18 01/16/18 Unknown [Smoothlax] Promethazine HCl [Phenergan] 25 mg PO Q6H 01/16/18 01/16/18 Unknown Sennosides/Docusate Sodium [[place] 1 udtab PO QHS PRN 01/16/18 01/16/18 Unknown Plus] Allergies Allergy/AdvReac Type Severity Reaction Status Date / Time ciprofloxacin Allergy Severe ANAPHYLAXIS Verified 01/16/18 21:18 pregabalin [From Lyrica] Allergy Severe ANAPHYLAXIS Verified 02/27/17 23:39 sulfamethoxazole Allergy Severe SWELLING Verified 02/27/17 23:39 [From Bactrim] OF THE FACE trimethoprim [From Bactrim] Allergy Severe SWELLING Verified 02/27/17 23:39 OF THE FACE adhesive Allergy Mild RASH Verified 02/27/17 23:39 nitrofurantoin AdvReac Intermediate VOMITING Verified 02/27/17 23:39 [From Macrobid] nitrofurantoin AdvReac Intermediate VOMITING Verified 02/27/17 23:39 macrocrystalline [From Macrobid] iv contrast dye Allergy Severe ANAPHYLAXIS Uncoded 10/31/16 14:49 Travel Screening - Travel/Exposure Within Last 30 Days Have you traveled within the last 30 days?: No - Travel Symptoms Symptom Screening: None Review of Systems Reviewed: No additional complaints except as noted below Constitutional: Reports: As per HPI. Denies: Chills, Fever, Malaise, Night sweats, Weakness, Weight change Eyes: Reports: As per HPI. Denies: Eye discharge, Eye pain, Photophobia, Vision change ENT: Reports: As per HPI. Denies: Congestion, Dental pain, Ear pain, Epistaxis , Hearing loss, Throat pain Respiratory: Reports: As per HPI. Denies: Cough, Dyspnea, Hemoptysis, Stridor, Wheezes Cardiovascular: Reports: As per HPI. Denies: Arrhythmia, Chest pain, Dyspnea on exertion, Edema, Murmurs, Orthopnea, Palpitations, Paroxysmal nocturnal dyspnea, Rheumatic Fever, Syncope Endocrine: Reports: As per HPI. Denies: Fatigue, Heat or cold intolerance, Polydipsia, Polyuria Gastrointestinal: Reports: As per HPI. Denies: Abdominal pain, Constipation, Diarrhea, Hematemesis, Hematochezia, Melena, Nausea, Vomiting Genitourinary: Reports: As per HPI. Denies: Abnormal menses, Discharge, Dyspareunia, Dysuria, Frequency, Hematuria, Incontinence, Retention, Urgency Musculoskeletal: Reports: As per HPI. Denies: Arthralgia, Back pain, Gout, Joint swelling, Myalgia, Neck pain Skin: Reports: As per HPI. Denies: Bruising, Change in color, Change in hair/ nails, Lesions, Pruritus, Rash Neurological: Reports: As per HPI. Denies: Abnormal gait, Confusion, Headache, Numbness, Paresthesias, Seizure, Tingling, Tremors, Vertigo, Weakness Psychiatric: Reports: As per HPI. Denies: Anxiety, Auditory hallucinations, Depression, Homicidal thoughts, Suicidal thoughts, Visual hallucinations Hematological/Lymphatic: Reports: As per HPI. Denies: Anemia, Blood Clots, Easy bleeding, Easy bruising, Swollen glands Past Medical History - SOCIAL HISTORY Smoking Status: Light tobacco smoker (<10/day) Alcohol Use: None Drug Use: None - RESPIRATORY Hx Respiratory Disorders: Yes Hx Asthma: Yes Hx Pneumonia: Yes - CARDIOVASCULAR Hx Cardio Disorders: Yes Hx Hypertension: Yes - NEURO Hx Neuro Disorders: Yes Hx Neuropathy: Yes (all over) Hx Seizures: Yes (1999) - GI Hx GI Disorders: Yes Hx Obstructive Bowel: Yes Comment:: gluten intolerant - Hx Genitourinary Disorders: Yes Hx Renal Disease: Yes Hx UTI: Yes - ENDOCRINE Hx Endocrine Disorders: Yes Hx Thyroid Disease: Yes (low) Comment:: Adrenal tumor-pheochromocytoma - MUSCULOSKELETAL Hx Musculoskeletal Disorders: Yes Hx Arthritis: Yes (right knee pain) Comment:: congenital myopathy - PSYCH Hx Psych Problems: No - HEMATOLOGY/ONCOLOGY Hx Hematology/Oncology Disorders: Yes Hx Cancer: Yes (Leukemia) 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 negative: External canal tenderness Nasal Exam: Normal inspection. negative: Discharge, Sinus tenderness Mouth exam: Normal external inspection, Tongue normal Teeth exam: Normal inspection. negative: Dental caries Throat exam: Normal inspection. negative: Tonsillar erythema, Tonsillar exudate - Neck Neck exam: Normal inspection, Full ROM. negative: Tenderness - Respiratory Respiratory exam: Normal lung sounds bilaterally. negative: Respiratory distress - Cardiovascular Cardiovascular Exam: Normal rhythm, Normal heart sounds, Tachycardia - GI/Abdominal GI/Abdominal exam: Soft, Normal bowel sounds. negative: Tenderness - Rectal Rectal exam: Deferred - exam: Deferred - Extremities Extremities exam: Normal inspection, Normal capillary refill, Tenderness (over mcl of l knee). negative: Full ROM - Back Back exam: Reports: Normal inspection, Full ROM. Denies: Muscle spasm, Rash noted, Tenderness - Neurological Neurological exam: Alert, CN II-XII intact, Normal gait, Oriented X3 - Psychiatric Psychiatric exam: Normal affect, Normal mood - Skin Skin exam: Dry, Intact, Normal color, Warm Course Vital Signs 01/16/18 21:07 Temperature 97.9 F Pulse Rate [ 104 H Pulse Ox Probe] Respiratory 20 Rate Blood Pressure 126/81 [Right Arm] Pulse Ox 97 - Reevaluation(s) Reevaluation #1: 01/16/18 22:52 pt has chronic problems w right knee and is rxd a brace however she is currently unable to tolerate her brace to to discomfort so an suni wrap was ordered for r knee so she can weight bear and give a break to the newly injured l knee Disposition Disposition: Discharge Clinical Impression: Knee MCL sprain Qualifiers: Encounter type: initial encounter Laterality: left Qualified Code(s): S83.412A - Sprain of medial collateral ligament of left knee, initial encounter Disposition: Home, Self-Care Condition: (1) Good Instructions: Knee Immobilizer (ED), Knee Sprain (ED) Additional Instructions: follow up with orthopedics. ice and elevate. return sooner if worse. bear weight as tolerated Forms: Patient Portal Access Quality - Quality Measures Quality Measures: N/A - Blood Pressure Screening Does Patient Have Any of the Following: No Blood Pressure Classification: Pre-Hypertensive BP Reading Systolic Measurement: 126 Diastolic Measurement: 81 Screening for High Blood Pressure: < Pre-Hypertensive BP, F/U Documented > [ G8950] Pre-Hypertensive Follow-up Interventions: Follow-up with rescreen every year.
[2018-01-16] MEDS ORDERED: HYDROMORPHONE HCL 1 MG/ML SYRINGE IM ONE (22:43)
[2018-01-16] MEDS: PROMETHAZINE HCL 25 MG/ML VIAL IM ONE ×2 (22:52→23:10)
--- NOTE | 2018-01-18 07:36 | RADIOLOGY REPORT ---
EXAM: LEFT KNEE, FOUR VIEWS HISTORY: POSTERIOR PAIN FROM INJURY. TECHNIQUE: Four views of the left knee were obtained. FINDINGS: Mild knee joint effusion. No clearly acute osseous abnormality. There is spurring of the tibial spine suggesting degenerative type changes. IMPRESSION: MILD KNEE JOINT EFFUSION WITHOUT CLEARLY ACUTE OSSEOUS ABNORMALITY. MILD DEGENERATIVE CHANGE. JOB NUMBER: [id number] MTDD
== END 2018-01-16 23:34 | disposition home or self-care (01) ==
LOC: ER 21:01
DX: S83.412A Sprain of medial collateral ligament of left knee, initial encounter (principal); X50.0XXA Overexertion from strenuous movement or load, initial encounter; I10 Essential (primary) hypertension; F17.210 Nicotine dependence, cigarettes, uncomplicated
CPT/HCPCS: 29505; 99283; 96372; 99284; 73562; J1885; J1170; J2550

== ENCOUNTER 2019-11-12 18:38 | Emergency (ER) | payer OTHER, MEDICARE ==
--- NOTE | 2019-11-12 18:54 | Emergency Department Record ---
History of Present Illness - General Chief Complaint: Chest Pain Stated Complaint: CHEST/ L SHOULDER PAIN Time Seen by Provider: 11/12/19 18:45 Source: Patient Mode of Arrival: Ambulatory Limitations: No limitations - History of Present Illness Initial Comments: 59 yo female presents to ED for evaluation of left shoulder pain that has been present for weeks, patient reports that she is awaiting shoulder re-construction surgery currently. Patient reports that her pain symptoms were worse this evening and she reports developing chest discomfort this evening, contacted her PCP who recommended evaluation for possible cardiac etiology. Patient denies pain with exertion, denies diaphoresis, nausea symptoms. Patient denies calf pain, swelling, history of DVT, or pain with deep inspiration. Patient denies cough, fever, chills, or recent illness. Patient further denies heart or lung problems at her baseline. MD Complaint: Chest pain Onset/Timin -: Hour(s) Onset: During rest Pain Location: Substernal Severity: Moderate Consistency: Constant Improves With: Nothing Worsens With: Nothing Treatments Prior to Arrival: None - Related Data On Oral Contraceptives: No Allergies Allergy/AdvReac Type Severity Reaction Status Date / Time ciprofloxacin Allergy Severe ANAPHYLAXIS Verified 11/12/19 18:45 pregabalin [From Lyrica] Allergy Severe ANAPHYLAXIS Verified 11/12/19 18:45 sulfamethoxazole Allergy Severe SWELLING Verified 11/12/19 18:45 [From Bactrim] OF THE FACE trimethoprim [From Bactrim] Allergy Severe SWELLING Verified 11/12/19 18:45 OF THE FACE adhesive Allergy Mild RASH Verified 11/12/19 18:45 nitrofurantoin AdvReac Intermediate VOMITING Verified 11/12/19 18:45 [From Macrobid] nitrofurantoin AdvReac Intermediate VOMITING Verified 11/12/19 18:45 macrocrystalline [From Macrobid] iv contrast dye Allergy Severe ANAPHYLAXIS Uncoded 10/31/16 14:49 Review of Systems Constitutional: Denies: Chills, Fever, Malaise, Night sweats Eyes: Denies: Eye discharge, Eye pain ENT: Denies: Congestion, Ear pain, Epistaxis Respiratory: Denies: Cough, Dyspnea Cardiovascular: Reports: Chest pain. Denies: Dyspnea on exertion Endocrine: Denies: Fatigue, Heat or cold intolerance Gastrointestinal: Denies: Abdominal pain, Nausea, Vomiting Genitourinary: Denies: Incontinence, Retention Musculoskeletal: Reports: Arthralgia. Denies: Back pain, Gout, Joint swelling Skin: Denies: Bruising, Change in color Neurological: Denies: Abnormal gait, Confusion, Headache, Seizure Psychiatric: Denies: Anxiety Hematological/Lymphatic: Denies: Anemia, Blood Clots Past Medical History - SOCIAL HISTORY Smoking Status: Light tobacco smoker (<10/day) Drug Use: None - RESPIRATORY Hx Respiratory Disorders: Yes Hx Asthma: Yes Hx Pneumonia: Yes - CARDIOVASCULAR Hx Cardio Disorders: Yes Hx Hypertension: Yes - NEURO Hx Neuro Disorders: Yes Hx Neuropathy: Yes (all over) Hx Seizures: Yes (1999) - GI Hx GI Disorders: Yes Hx Obstructive Bowel: Yes Comment:: gluten intolerant - Hx Genitourinary Disorders: Yes Hx Renal Disease: Yes Hx UTI: Yes - ENDOCRINE Hx Endocrine Disorders: Yes Hx Thyroid Disease: Yes (low) Comment:: Adrenal tumor-pheochromocytoma - MUSCULOSKELETAL Hx Musculoskeletal Disorders: Yes Hx Arthritis: Yes (right knee pain) Comment:: congenital myopathy - PSYCH Hx Psych Problems: No - HEMATOLOGY/ONCOLOGY Hx Hematology/Oncology Disorders: Yes Hx Cancer: Yes (Leukemia) 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 negative: Conjunctival injection, Periorbital swelling, Periorbital tenderness, Scleral icterus - ENT Ear exam: negative: Auricular hematoma, Auricular trauma Nasal Exam: negative: Active bleeding, Discharge, Dried blood, Foreign body Mouth exam: negative: Drooling, Laceration, Muffled voice, Tongue elevation - Neck Neck exam: Normal inspection. negative: Meningismus, Tenderness - Respiratory Respiratory exam: Normal lung sounds bilaterally. negative: Rales, Respiratory distress, Rhonchi, Stridor - Cardiovascular Cardiovascular Exam: Regular rate, Normal rhythm, Normal heart sounds - GI/Abdominal GI/Abdominal exam: Soft. negative: Rebound, Rigid, Tenderness - Rectal Rectal exam: Deferred - exam: Deferred - Extremities Extremities exam: negative: Calf tenderness, Pedal edema, Tenderness - Back Back exam: Denies: CVA tenderness (R), CVA tenderness (L) - Neurological Neurological exam: Alert, Oriented X3 - Psychiatric Psychiatric exam: Flat affect - Skin Skin exam: Normal color. negative: Abrasion Type of lesion: negative: abrasion Course - Reevaluation(s) Reevaluation #1: 11/12/19 18:54 EKG: NSR 81 Normal axis, normal intervals T wave inversion III, otherwise no acute ST-T wave changes. Reevaluation #2: 11/12/19 19:39 The patient was deemed to be low-risk for cardiac disease based on the patients history and evaluation in the ED, HEART Score was applied and found to be 2. As a result, repeat Troponin in 3-hours appears appropriate and if negative for myocardial injury, the patient may be discharged home with appropriate outpatient follow-up for further evaluation. Patient her SO were updated on the above plan of care and are in agreement. Patient is laying supine currently, quietly resting but asking for "more pain medication so I can sleep". Kingston per her orthopedic surgery recommendations has been provided, patient's voice seems slightly slurred as well. Will order Benadryl/Phenergan IVPB with a goal of facilitating sleep here in the ED. Reevaluation #3: 11/12/19 21:49 Repeat Troponin drawn at this time. Patient sleeping on re-examination, resting comfortably. Reevaluation #4: 11/12/19 22:21 Repeat Troponin appears negative for myocardial injury. Patient was updated on her result, appears stable for discharge at this time with instructions to follow-up with her PCP in 3-5 days. Medical Decision Making - Lab Data Result diagrams: 11/12/19 19:05 11/12/19 19:05 Disposition Disposition: Discharge Clinical Impression: Atypical chest pain Left shoulder pain Qualifiers: Chronicity: chronic Qualified Code(s): M25.512 - Pain in left shoulder Disposition: Home, Self-Care Condition: (2) Stable Instructions: Chest Pain (ED) Additional Instructions: Return to ED if your symptoms worsen or if you have any concerns. Continue your Kingston as previously prescribed. Follow-up with your family doctor in 3-5 days as directed. Forms: Patient Portal Access Time of Disposition: 22:22 Quality - Quality Measures Quality Measures: N/A - Blood Pressure Screening Does Patient Have Any of the Following: No Blood Pressure Classification: Normal BP Reading Systolic Measurement: 117 Diastolic Measurement: 66 Screening for High Blood Pressure: < Normal BP, F/U Not Required > [G8783]
[2019-11-12] MEDS: HYDROCODONE/APAP 5/325MG TABLET PO ONE (19:03)
[2019-11-12] MEDS: ASPIRIN 81 MG CHEWABLE TABLET PO ONE (19:04)
[2019-11-12 19:15] LABS: HEMATOCRIT 39.1 % (35.0-47.0); HEMOGLOBIN 13.1 gm/dl (11.6-16.0); MEAN CELL VOLUME 102.9 fl (81-97); MEAN CORPUSCULAR HEMOGLOBIN 34.5 pg (27-33); MEAN CORPUSCULAR HGB CONC 33.5 g/dl (32-36); MEAN PLATELET VOLUME 7.7 fl (7.4-10.4); PLATELET COUNT 427 K/uL (130-400); RED CELL DISTRIBUTION WIDTH 13.4 % (11.5-14.5); WHITE BLOOD COUNT W/O DIFF 8.2 K/uL (4.2-12.2)
[2019-11-12 19:29] LABS: BILIRUBIN,TOTAL < 0.20 mg/dL (0.2-1.0); BLOOD UREA NITROGEN 18 mg/dL (6-20); CREATININE 0.9 mg/dL (0.5-0.9); EST GLOMERULAR FILTRATION RATE > 60 mL/min; TOTAL PROTEIN 6.8 g/dL (6.6-8.7)
[2019-11-12 19:31] LABS: GLUCOSE,RANDOM 143 mg/dL (74-109); PLATELET ESTIMATE INCREASED (NORMAL)
[2019-11-12 19:34] LABS: ALB/GLOB RATIO 1.6 (1.1-1.8); ALBUMIN 4.2 g/dL (4.0-5.0); ALKALINE PHOSPHATASE 77 U/L (35-104); ALT/SGPT 48 U/L (<33); AST/SGOT 38 U/L (10.0-35.0)
[2019-11-12] MEDS: DIPHENHYDRAMINE HCL 50 MG/ML VIAL IVP ONE (19:53)
[2019-11-12] MEDS: PROMETHAZINE HCL 25 MG in 0.9 % SODIUM CHLORIDE 100ML 100 ML IVPB ONE (19:53)
== END 2019-11-12 23:11 | disposition home or self-care (01) ==
LOC: ER 18:38
DX: R07.89 Other chest pain (principal); M25.512 Pain in left shoulder; F17.210 Nicotine dependence, cigarettes, uncomplicated; I10 Essential (primary) hypertension
CPT/HCPCS: 80053; 84484; 85027; 93005; 93010; 96365; 96375; 99284; J1200; J2550